=== PATIENT | female | born 1950 | race African-American/Black ===

== ENCOUNTER 2020-03-08 00:33 | Emergency (ER) | payer MEDICARE | END 2020-03-08 01:53 | disposition home or self-care (01) | LOC: ERS 00:33 | DX: I10 Essential (primary) hypertension (principal); E11.9 Type 2 diabetes mellitus without complications; E78.5 Hyperlipidemia, unspecified; E78.00 Pure hypercholesterolemia, unspecified; Z79.899 Other long term (current) drug therapy; Z79.82 Long term (current) use of aspirin; Z79.84 Long term (current) use of oral hypoglycemic drugs | CPT/HCPCS: 93005 ==

== ENCOUNTER 2023-04-16 13:15 | Outpatient (CLI) | payer OTHER | END 2023-04-16 13:16 | disposition home or self-care (01) | LOC: BICMAMMO 13:15 | PROVIDERS: ATTEND Family Medicine | DX: Z12.31 Encounter for screening mammogram for malignant neoplasm of breast (principal) | CPT/HCPCS: 77063; 77067 ==